=== PATIENT | male | born 1970 | race Caucasian/White ===

== ENCOUNTER 2021-04-26 19:57 | Emergency (ER) | payer OTHER ==
[~2021-04-26 19:57] MED LIST: BENTYL 20MG TAB20 MG PO; LODINE CAP 300300 MG PO; TESSALON PERLE100 MG PO; ZOFRAN ODT 4 MG4 MG SL; ZYRTEC10 M3 PO
[2021-04-26 20:59] LABS: HEMOGLOBIN 12.9 gm/dl (14.0-17.5); RED BLOOD COUNT 4.46 M/UL (4.20-5.50); WHITE BLOOD COUNT 9.2 K/UL (4.5-11.0)
[2021-04-26 21:19] LABS: BUN/CREATININE RATIO 10 (0-10)
[2021-04-27] MEDS ORDERED: K-DUR TAB 10 M10 MEQ PO (02:35)
[2021-04-27] MEDS ORDERED: LASIX20 MG PO (02:35)
[2021-04-27] MEDS ORDERED: CEPHALEXIN500 MG PO (02:35)
== END 2021-04-27 02:40 | disposition home or self-care (01) ==
LOC: ER1 19:57
PROVIDERS: Physician Assistant
DX: L03.116 Cellulitis of left lower limb (principal); L03.115 Cellulitis of right lower limb; I87.2 Venous insufficiency (chronic) (peripheral); E87.6 Hypokalemia; E78.5 Hyperlipidemia, unspecified; F17.200 Nicotine dependence, unspecified, uncomplicated; Z79.899 Other long term (current) drug therapy
CPT/HCPCS: 71046; 80053; 83880; 85025; 99285

== ENCOUNTER → 2021-05-16 | Outpatient (CLI) | payer OTHER ==
[~2021-05-16] MED LIST changes: +CEPHALEXIN500 MG PO; +K-DUR TAB 10 M10 MEQ PO; +LASIX20 MG PO
== END ==
LOC: WCC 11:00
DX: L03.115 Cellulitis of right lower limb (principal); L03.116 Cellulitis of left lower limb; R60.1 Generalized edema; E66.01 Morbid (severe) obesity due to excess calories; I87.323 Chronic venous hypertension (idiopathic) with inflammation of bilateral lower extremity; Z72.0 Tobacco use
CPT/HCPCS: 97597

== ENCOUNTER → 2021-05-18 | Outpatient (CLI) | payer OTHER | LOC: EXRD 05-14 15:45 | DX: R09.89 Other specified symptoms and signs involving the circulatory and respiratory systems (principal) | CPT/HCPCS: 93925 ==